=== PATIENT | male | born 1960 | race Caucasian/White ===

== ENCOUNTER → 2016-12-06 | Outpatient (CLI) | payer OTHER ==
[~2016-12-06] MED LIST: 'XANAX0.25 MG PO; 'XANAX0.5 MG PO; ABILIFY2 MG PO; ACCUNEB 0.0.63 MG/3 INH; DIOCTO LIQ50 MG/5 ML JT; FAMOTIDINE20 M1 PO; FERROUS SULFAT325 M1 PO; FLUOXETINE10 MG PO; HYDROCODONE BIT1 T11 PO; IBUPROFEN200 MG PO; Lopressor25 MG PO; Lovenox80 MG/0.8 SC; MOM30 ML PO; NAPROSYN500 MG PO; ONDANSETRON4 MG/5 M2 PO; PERCOCET 325 MG1 TA2 PO; PREDNISONE20 MG PO; PROTONIX TR40 MG PO; PROTONIX20 MG PO; PROZAC20 MG PO; QUALITY VA JT; ROBITUSSIN AC 110 ML PO; TRAMADOL HCL50 MG PO; VISTARIL50 MG PO; WARFARIN SOD5 MG PO; WELLBUTRIN XL150 MG PO; WELLBUTRIN75 MG PO; ZITHROMAX Z PA250 MG PO
== END | disposition home or self-care (01) ==
LOC: RAD 07:45
DX: R13.10 Dysphagia, unspecified (principal)

== ENCOUNTER → 2017-11-07 | Outpatient (CLI) | payer OTHER | END | disposition home or self-care (01) | LOC: CT 13:00 | DX: R13.10 Dysphagia, unspecified (principal); K57.30 Diverticulosis of large intestine without perforation or abscess without bleeding; K25.5 Chronic or unspecified gastric ulcer with perforation; M43.16 Spondylolisthesis, lumbar region; K42.9 Umbilical hernia without obstruction or gangrene; Z98.890 Other specified postprocedural states; Z90.49 Acquired absence of other specified parts of digestive tract; Z87.19 Personal history of other diseases of the digestive system ==

== ENCOUNTER → 2017-11-23 | Outpatient (CLI) | payer OTHER | END | disposition home or self-care (01) | LOC: RAD 01:52 | DX: R13.10 Dysphagia, unspecified (principal); Z90.49 Acquired absence of other specified parts of digestive tract ==

== ENCOUNTER 2019-04-12 16:23 | Emergency (ER) | payer OTHER ==
[~2019-04-12] VITALS: Ht 177.8 cm; Wt 65.8 kg
[~2019-04-12 16:23] MED LIST changes: +ATARAX,VISTARIL50 MG PO; +BUSPIRONE HCL10 MG PO; +DULOXETINE HCL60 MG PO; +FLUOXETINE HYDR20 M1 PO; +HYDROXYZINE PAM25 M1 PO; +MEGESTROL ACETA20 MG PO; +PROAIR HFA8.5 GM INH; +QUETIAPINE FUM100 M3 PO
[2019-04-12] MEDS ORDERED: CEPHALEXIN500 M1 PO (17:30)
== END 2019-04-12 17:29 | disposition home or self-care (01) ==
LOC: ED 16:23
DX: S71.112A Laceration without foreign body, left thigh, initial encounter (principal); F17.200 Nicotine dependence, unspecified, uncomplicated; Z23 Encounter for immunization; Z79.899 Other long term (current) drug therapy; W45.8XXA Other foreign body or object entering through skin, initial encounter; Y93.89 Activity, other specified; Y92.89 Other specified places as the place of occurrence of the external cause; Y99.8 Other external cause status

== ENCOUNTER → 2019-08-12 | Outpatient (CLI) | payer OTHER ==
[~2019-08-12] MED LIST changes: +CEPHALEXIN500 M1 PO
== END | disposition home or self-care (01) ==
LOC: RAD 08-08 10:00
DX: R13.10 Dysphagia, unspecified (principal)

== ENCOUNTER → 2019-09-17 | Outpatient (CLI) | payer OTHER ==
[2019-09-17 14:23] LABS: BASO # 0.1 10*3/uL (0.0-0.1); EOS # 0.2 10*3/uL (0.0-0.4); EOS % 3.9 % (1.0-4.0); HEMATOCRIT 40.5 % (42.0-52.0); HEMOGLOBIN 12.9 g/dl (14.0-18.0); LYMPH # 1.5 10*3/uL (1.3-4.4); LYMPH % 28.7 % (27.0-41.0); MEAN CELL VOLUME 91.2 fl (80.0-94.0); MEAN CORPUSCULAR HGB 29.1 pg (27.0-31.0); MEAN CORPUSCULAR HGB CONC 31.9 g/dl (33.0-37.0); MEAN PLATELET VOLUME 10.5 fl (9.6-12.3); MONO # 0.6 10*3/uL (0.1-1.0); MONO % 10.8 % (3.0-9.0); NEUT # 2.8 10*3/uL (2.3-7.9); NEUT % 55.6 % (47.0-73.0); PLATELET COUNT AUTOMATED 232 10*3/uL (130-400); RED BLOOD COUNT 4.44 10*6/uL (4.50-5.90); RED CELL DISTRI WIDTH 13.2 % (0-14.5); WHITE BLOOD COUNT 5.1 10*3/uL (4.8-10.8)
[2019-09-17 14:53] LABS: ALBUMIN 3.9 gm/dl (3.1-4.5); BILIRUBIN, DIRECT 0.2 mg/dL (0.0-0.2); PHOSPHOROUS 3.6 mg/dL (2.5-4.9); TOTAL PROTEIN 6.9 gm/dL (6.4-8.2)
[2019-09-17 15:00] LABS: ACT PARTIAL THROMBO TIME 24.9 SECONDS (20.0-32.1); INTERNATIONAL NORM RATIO 0.9 (2.0-3.5)
== END | disposition home or self-care (01) ==
LOC: LAB 13:36
DX: R13.10 Dysphagia, unspecified (principal)

== ENCOUNTER → 2019-10-24 | Outpatient (CLI) | payer OTHER ==
[2019-10-24 16:25] LABS: CREATININE 1.05 mg/dL (0.70-1.30)
== END | disposition home or self-care (01) ==
LOC: LAB 15:55 → CT 16:00
PROVIDERS: Radiology Diagnostic Radiology
DX: K22.5 Diverticulum of esophagus, acquired (principal); K22.70 Barrett's esophagus without dysplasia; K44.9 Diaphragmatic hernia without obstruction or gangrene; Z98.890 Other specified postprocedural states

== ENCOUNTER → 2019-12-16 | Outpatient (CLI) | payer OTHER | END | disposition home or self-care (01) | LOC: RAD 13:29 | DX: J43.9 Emphysema, unspecified (principal); K44.9 Diaphragmatic hernia without obstruction or gangrene; K22.70 Barrett's esophagus without dysplasia; Z90.49 Acquired absence of other specified parts of digestive tract ==

== ENCOUNTER → 2020-06-14 | Outpatient (CLI) | payer OTHER | END | disposition home or self-care (01) | LOC: RAD 14:05 | PROVIDERS: ATTEND Nurse Practitioner Family | DX: M25.511 Pain in right shoulder (principal) ==

== ENCOUNTER → 2020-11-23 | Outpatient (CLI) | payer OTHER | END | disposition home or self-care (01) | LOC: RAD 18:24 | PROVIDERS: ATTEND Nurse Practitioner Family | DX: N41.0 Acute prostatitis (principal); N20.0 Calculus of kidney; Z98.890 Other specified postprocedural states ==

== ENCOUNTER → 2021-03-21 | Outpatient (CLI) | payer OTHER | END | disposition home or self-care (01) | LOC: RAD 09:00 | PROVIDERS: ATTEND Physician Assistant Surgical | DX: K22.2 Esophageal obstruction (principal); Z98.890 Other specified postprocedural states ==

== ENCOUNTER 2021-10-06 09:33 | Emergency (ER) | payer OTHER ==
[~2021-10-06] VITALS: Wt 68.0 kg
[2021-10-06] MEDS ORDERED: CYCLOBENZAPRINE5 M3 PO (11:49)
== END 2021-10-06 11:40 | disposition home or self-care (01) ==
LOC: ED 09:33
DX: M25.512 Pain in left shoulder (principal); F17.200 Nicotine dependence, unspecified, uncomplicated; Z98.890 Other specified postprocedural states

== ENCOUNTER 2021-11-19 18:52 | Emergency (ER) | payer OTHER ==
[~2021-11-19] VITALS: Wt 75.3 kg
[~2021-11-19 18:52] MED LIST changes: +CYCLOBENZAPRINE5 M3 PO
[2021-11-19 22:16] LABS: BASO % 0.5 % (0.0-1.0); EOS # 0.2 10*3/uL (0.0-0.4); EOS % 1.8 % (1.0-4.0); HEMATOCRIT 37.6 % (42.0-52.0); LYMPH # 1.2 10*3/uL (1.3-4.4); LYMPH % 14.2 % (27.0-41.0); MEAN CELL VOLUME 84.3 fl (80.0-94.0); MEAN CORPUSCULAR HGB 25.8 pg (27.0-31.0); MEAN CORPUSCULAR HGB CONC 30.6 g/dl (33.0-37.0); MONO % 11.4 % (3.0-9.0); NEUT # 6.1 10*3/uL (2.3-7.9); NEUT % 71.9 % (47.0-73.0); PLATELET COUNT AUTOMATED 272 10*3/uL (130-400); RED BLOOD COUNT 4.46 10*6/uL (4.50-5.90); RED CELL DISTRI WIDTH 13.4 % (0-14.5); WHITE BLOOD COUNT 8.5 10*3/uL (4.8-10.8)
[2021-11-19 22:27] LABS: BUN 18 mg/dl (7-24); CHLORIDE 105 mmol/L (98-107); CREATININE 0.71 mg/dL (0.70-1.30); POTASSIUM 4.1 mmol/L (3.5-5.1); SODIUM 136 mmol/L (136-145)
[2021-11-19 22:36] LABS: ETHYL ALCOHOL < 3.0 mg/dl (<3)
== END 2021-11-20 03:41 | disposition short-term general hospital (02) ==
LOC: ED 18:52
PROVIDERS: Internal Medicine
DX: S02.2XXA Fracture of nasal bones, initial encounter for closed fracture (principal); S03.00XA Dislocation of jaw, unspecified side, initial encounter; F17.200 Nicotine dependence, unspecified, uncomplicated; Z98.890 Other specified postprocedural states; V49.88XA Car occupant (driver) (passenger) injured in other specified transport accidents, initial encounter; Y93.89 Activity, other specified; Y92.413 State road as the place of occurrence of the external cause; Y99.9 Unspecified external cause status

== ENCOUNTER → 2022-04-25 | Outpatient (CLI) | payer OTHER | END | disposition home or self-care (01) | LOC: RAD 08:00 | PROVIDERS: ATTEND Specialist | DX: K22.70 Barrett's esophagus without dysplasia (principal); K44.9 Diaphragmatic hernia without obstruction or gangrene; Z90.49 Acquired absence of other specified parts of digestive tract; Z98.890 Other specified postprocedural states ==

== ENCOUNTER → 2023-01-22 | Outpatient (CLI) | payer OTHER ==
[~2023-01-22] MED LIST changes: +MIRTAZAPINE15 M2 PO; +TRINTELLIX20 MG PO; +VISTARIL25 M2 PO
== END | disposition home or self-care (01) ==
LOC: CT 12:57
PROVIDERS: ATTEND Hospitalist
DX: J43.9 Emphysema, unspecified (principal); A31.9 Mycobacterial infection, unspecified; Z98.890 Other specified postprocedural states

== ENCOUNTER 2023-07-15 16:14 | Emergency (ER) | payer OTHER ==
[~2023-07-15] VITALS: Ht 152.4 cm; Wt 71.2 kg
[2023-07-15 16:57] LABS: BILIRUBIN 1+ (Negative); BLOOD 2+ (Negative); CLARITY Cloudy (Clear); COLOR Orange (Yellow); GLUCOSE Trace (Negative); KETONE Negative (Negative); LEUKO ESTERASE 3+ (Negative); NITRITE Positive (Negative); SPECIFIC GRAVITY 1.015 (1.001-1.030)
[2023-07-15 17:07] LABS: BASO # 0.1 10*3/uL (0.0-0.1); BASO % 0.7 % (0.0-1.0); EOS # 0.2 10*3/uL (0.0-0.4); EOS % 2.4 % (1.0-4.0); HEMATOCRIT 34.5 % (42.0-52.0); LYMPH # 1.2 10*3/uL (1.3-4.4); LYMPH % 17.4 % (27.0-41.0); MEAN CELL VOLUME 83.9 fl (80.0-94.0); MEAN CORPUSCULAR HGB 25.8 pg (27.0-31.0); MEAN CORPUSCULAR HGB CONC 30.7 g/dl (33.0-37.0); MEAN PLATELET VOLUME 8.5 fl (9.6-12.3); MONO # 0.7 10*3/uL (0.1-1.0); MONO % 10.3 % (3.0-9.0); NEUT # 4.7 10*3/uL (2.3-7.9); NEUT % 68.9 % (47.0-73.0); PLATELET COUNT AUTOMATED 317 10*3/uL (130-400); RED BLOOD COUNT 4.11 10*6/uL (4.50-5.90); RED CELL DISTRI WIDTH 14.6 % (0-14.5); WHITE BLOOD COUNT 6.8 10*3/uL (4.8-10.8)
[2023-07-15 17:14] LABS: BACTERIA 2+; RBC TNTC rbc/hpf (0-2); WBC TNTC wbc/hpf (0-5)
[2023-07-15 17:29] LABS: ALKALINE PHOSPHATASE 90 U/L (46-116); BUN 19 mg/dl (9-23); CHLORIDE 107 mmol/L (98-107); POTASSIUM 4.4 mmol/L (3.4-5.1); SGPT/ALT 18 U/L (5-49); TOTAL PROTEIN 6.6 gm/dL (6.0-8.0)
[2023-07-15] MEDS ORDERED: CIPRO500 MG PO (17:36)
== END 2023-07-15 17:46 | disposition home or self-care (01) ==
LOC: ED 16:14
PROVIDERS: Physician Assistant Medical
DX: N39.0 Urinary tract infection, site not specified (principal); R33.9 Retention of urine, unspecified; Z79.899 Other long term (current) drug therapy; Z98.890 Other specified postprocedural states

== ENCOUNTER 2023-10-22 09:57 | Emergency (ER) | payer OTHER ==
[~2023-10-22] VITALS: Wt 70.3 kg
[~2023-10-22 09:57] MED LIST changes: +CIPRO500 MG PO
[2023-10-22] MEDS ORDERED: IOHEXOL 300 MG/ML 100 ML VIAL IV ONE (10:30)
[2023-10-22] MEDS ORDERED: IBU800 M1 PO (10:33)
[2023-10-22] MEDS ORDERED: REXULTI2 MG PO (10:33)
[2023-10-22] MEDS ORDERED: CYCLOBENZAPRINE10 MG PO (10:33)
[2023-10-22] MEDS ORDERED: TAMSULOSIN HCL0.4 MG PO (10:34)
[2023-10-22 10:39] LABS: MEAN CELL VOLUME 83.6 fl (80.0-94.0); MEAN CORPUSCULAR HGB CONC 27.5 g/dl (33.0-37.0); MEAN PLATELET VOLUME 9.1 fl (9.6-12.3); NUCLEATED RED BLOOD CELL 0.4 % (0.0-0.0); PLATELET COUNT AUTOMATED 417 10*3/uL (130-400); RED BLOOD COUNT 2.13 10*6/uL (4.50-5.90); RED CELL DISTRI WIDTH 19.6 % (0-14.5); WHITE BLOOD COUNT 5.6 10*3/uL (4.8-10.8)
[2023-10-22 10:41] LABS: MANUAL DIFF REFLEX YES
[2023-10-22 10:43] LABS: HEMATOCRIT 17.8 % (42.0-52.0)
[2023-10-22 10:47] LABS: ACT PARTIAL THROMBO TIME 26.4 SECONDS (20.0-32.1)
[2023-10-22] MEDS ORDERED: FUROSEMIDE 20 MG/2 ML VIAL IV SCH (10:55)
[2023-10-22 11:01] LABS: ALKALINE PHOSPHATASE 79 U/L (46-116); BUN 20 mg/dl (9-23); CHLORIDE 110 mmol/L (98-107); LIPASE 25 U/L (12-53); POTASSIUM 4.2 mmol/L (3.4-5.1); SGPT/ALT 9 U/L (5-49)
[2023-10-22 11:03] LABS: BASOPHILS 1 % (0-1); BURR CELLS FEW; OVALOCYTES FEW; PLATELET SUFFICIENCY HIGH (NORMAL); POLYCHROMASIA SLIGHT; ROULEAUX SLIGHT; TARGET CELLS FEW; TOTAL CELLS COUNTED 100 #CELLS
[2023-10-22 11:04] LABS: ETHYL ALCOHOL < 3.0 mg/dl (<3)
[2023-10-22] MEDS ORDERED: SODIUM CHLORIDE 0.9% 500 ML IV ONE (11:28)
[2023-10-22 11:58] VITALS: BP 110/65
[2023-10-22 12:21] VITALS: BP 106/43
[2023-10-22 13:01] LABS: BILIRUBIN Negative (Negative); BLOOD 2+ (Negative); CLARITY Clear (Clear); COLOR Yellow (Yellow); GLUCOSE Negative (Negative); KETONE Negative (Negative); LEUKO ESTERASE 2+ (Negative); NITRITE Negative (Negative); PH 5.5 (4.5-8.0); SPECIFIC GRAVITY 1.015 (1.001-1.030); UROBILINOGEN 0.2 E.U./dl (0.0-1.0)
[2023-10-22 13:10] LABS: URINE AMPHETAMINES Positive (1000ng/ml); URINE BARBITURATES Negative (200ng/ml); URINE BENZODIAZEPINES Negative (200ng/ml); URINE CANNABINOIDS (THC) Positive (50ng/ml); URINE COCAINE Negative (300ng/ml); URINE METHADONE Negative (300ng/ml); URINE OPIATES Negative (300ng/ml); URINE PHENCYCLIDINE Negative (25ng/ml)
[2023-10-22 13:12] LABS: BACTERIA 2+; RBC 31-40 rbc/hpf (0-2); WBC TNTC wbc/hpf (0-5)
[2023-10-22] MEDS ORDERED: Ceftriaxone Sodium 1 GM/10 ML SYR IV ONE (13:15)
[2023-10-22 13:18] VITALS: BP 114/69
[2023-10-22] MEDS ORDERED: Pantoprazole Sodium 40 MG in SODIUM CHLORIDE 0.9% 50 ML IV SCH (14:00)
[2023-10-22 14:13] VITALS: BP 118/66
[2023-10-22 15:41] VITALS: BP 129/85
== END 2023-10-22 16:12 | disposition short-term general hospital (02) ==
LOC: ED 09:57
PROVIDERS: Internal Medicine
DX: K92.2 Gastrointestinal hemorrhage, unspecified (principal); D64.9 Anemia, unspecified; N30.90 Cystitis, unspecified without hematuria; N32.0 Bladder-neck obstruction; N13.30 Unspecified hydronephrosis; F41.9 Anxiety disorder, unspecified; F32.A Depression, unspecified; M19.90 Unspecified osteoarthritis, unspecified site; J45.909 Unspecified asthma, uncomplicated; F19.10 Other psychoactive substance abuse, uncomplicated; F17.200 Nicotine dependence, unspecified, uncomplicated; Z98.890 Other specified postprocedural states; Z79.899 Other long term (current) drug therapy

== ENCOUNTER 2024-01-05 12:32 | Emergency (ER) | payer OTHER ==
[~2024-01-05] VITALS: Ht 175.2 cm; Wt 68.0 kg
[~2024-01-05 12:32] MED LIST changes: +CYCLOBENZAPRINE10 MG PO; +IBU800 M1 PO; +REXULTI2 MG PO; +TAMSULOSIN HCL0.4 MG PO
[2024-01-05] MEDS ORDERED: Ondansetron Hydrochloride 4 MG/2 ML VIAL IV ONE (13:35)
[2024-01-05] MEDS ORDERED: fentaNYL CITRATE 100 MCG/2 ML VIAL IV ONE (13:35)
[2024-01-05 13:58] LABS: BASO % 0.2 % (0.0-1.0); LYMPH # 0.5 10*3/uL (1.3-4.4); LYMPH % 11.9 % (27.0-41.0); MEAN CELL VOLUME 77.9 fl (80.0-94.0); MEAN CORPUSCULAR HGB 23.1 pg (27.0-31.0); MEAN CORPUSCULAR HGB CONC 29.7 g/dl (33.0-37.0); MEAN PLATELET VOLUME 8.7 fl (9.6-12.3); MONO # 0.4 10*3/uL (0.1-1.0); MONO % 8.5 % (3.0-9.0); NEUT # 3.3 10*3/uL (2.3-7.9); NEUT % 79.2 % (47.0-73.0); PLATELET COUNT AUTOMATED 149 10*3/uL (130-400); RED BLOOD COUNT 3.98 10*6/uL (4.50-5.90); RED CELL DISTRI WIDTH 24.6 % (0-14.5); WHITE BLOOD COUNT 4.1 10*3/uL (4.8-10.8)
[2024-01-05 14:19] LABS: ALKALINE PHOSPHATASE 67 U/L (46-116); BUN 28 mg/dl (9-23); CHLORIDE 103 mmol/L (98-107); POTASSIUM 3.5 mmol/L (3.4-5.1); SGPT/ALT 19 U/L (5-49); TOTAL PROTEIN 5.9 gm/dL (6.0-8.0)
[2024-01-05] MEDS ORDERED: LEVOFLOXACIN750 M2 PO (16:41)
[2024-01-05] MEDS ORDERED: PERCOCET 5-3251 EACH PO (16:41)
== END 2024-01-05 16:12 ==
LOC: ED 12:32
PROVIDERS: Emergency Medicine
DX: S22.42XA Multiple fractures of ribs, left side, initial encounter for closed fracture (principal); F41.9 Anxiety disorder, unspecified; F32.A Depression, unspecified; M19.90 Unspecified osteoarthritis, unspecified site; J45.909 Unspecified asthma, uncomplicated; F17.200 Nicotine dependence, unspecified, uncomplicated; F19.10 Other psychoactive substance abuse, uncomplicated; Z98.890 Other specified postprocedural states; W01.0XXA Fall on same level from slipping, tripping and stumbling without subsequent striking against object, initial encounter; Y93.89 Activity, other specified; Y92.89 Other specified places as the place of occurrence of the external cause; Y99.8 Other external cause status

== ENCOUNTER 2025-08-03 18:02 | Emergency (ER) | payer OTHER ==
[~2025-08-03] VITALS: Wt 65.8 kg
[~2025-08-03 18:02] MED LIST changes: +LEVOFLOXACIN750 M2 PO; +PERCOCET 5-3251 EACH PO
[2025-08-03 19:00] LABS: MEAN CELL VOLUME 92.3 fl (80.0-94.0); MEAN CORPUSCULAR HGB 29.5 pg (27.0-31.0); MEAN PLATELET VOLUME 9.6 fl (9.6-12.3); NUCLEATED RED BLOOD CELL 0.0 % (0.0-0.0); NUCLEATED RED BLOOD CELL 0.0 10*3/uL (0.0-0.0); PLATELET COUNT AUTOMATED 181 10*3/uL (130-400); RED CELL DISTRI WIDTH 19.9 % (0-14.5)
[2025-08-03 19:02] LABS: MANUAL DIFF REFLEX YES
[2025-08-03 19:07] LABS: BUN 52.0 mg/dl (9-23)
[2025-08-03 19:25] LABS: PLATELET SUFFICIENCY NORMAL (NORMAL)
[2025-08-03] MEDS ORDERED: ACETAMINOPHEN 325 MG TAB PO ONE (19:30)
[2025-08-03] MEDS ORDERED: SODIUM CHLORIDE 0.9% 1,000 ML IV ONE (19:30)
[2025-08-04 01:08] LABS: BILIRUBIN Negative (Negative); BLOOD 2+ (Negative); CLARITY Cloudy (Clear); COLOR Yellow (Yellow); KETONE Negative (Negative); LEUKO ESTERASE 3+ (Negative); NITRITE Negative (Negative); PH 6.5 (4.5-8.0); SPECIFIC GRAVITY 1.010 (1.001-1.030); UROBILINOGEN 1.0 E.U./dl (0.0-1.0)
[2025-08-04 01:16] LABS: BACTERIA 4+; WBC 41-50 wbc/hpf (0-5)
== END 2025-08-04 03:35 | disposition short-term general hospital (02) ==
LOC: ED 18:02
PROVIDERS: Emergency Medicine
DX: N20.0 Calculus of kidney (principal); F41.9 Anxiety disorder, unspecified; J45.909 Unspecified asthma, uncomplicated; F32.A Depression, unspecified; M19.90 Unspecified osteoarthritis, unspecified site; F17.200 Nicotine dependence, unspecified, uncomplicated; Z20.822 Contact with and (suspected) exposure to COVID-19; Z98.890 Other specified postprocedural states; Z87.440 Personal history of urinary (tract) infections